=== PATIENT | female | born 1955 | race Caucasian/White ===

== ENCOUNTER 2020-06-25 14:28 | Emergency (ER) | payer OTHER ==
[~2020-06-25] VITALS: Ht 165.1 cm; Wt 74.0 kg
[2020-06-25 14:29] VITALS: BP 147/74
[2020-06-25] MEDS ORDERED: NEUR600T PO (15:11)
[2020-06-25] MEDS ORDERED: ADVA115A INH (15:11)
[2020-06-25] MEDS ORDERED: SPIR1CAP INH (15:11)
[2020-06-25] MEDS ORDERED: CITA20TA6 PO (15:11)
[2020-06-25] MEDS ORDERED: PROAAER10 INH ×3 (15:11→16:06)
[2020-06-25] MEDS ORDERED: XANA0.5T PO (15:11)
== END 2020-06-25 16:21 | disposition left against medical advice (07) ==
LOC: M ED 14:28
DX: Z53.20 Procedure and treatment not carried out because of patient's decision for unspecified reasons (principal); K94.09 Other complications of colostomy; F17.200 Nicotine dependence, unspecified, uncomplicated; Z79.899 Other long term (current) drug therapy; Z88.8 Allergy status to other drugs, medicaments and biological substances